=== PATIENT | male | born 1955 | race Caucasian/White ===

== ENCOUNTER → 2018-02-09 | Outpatient (CLI) | payer MEDICARE, MEDICAID ==
[~2018-02-09] MED LIST: ACETAMINOPHEN325 M1 PO; ACIDOPHILUS1 EAC3 PO; AMANTADINE100 M1 PO; ANTIVERT25 MG PO; AUGMENTIN 875875 MG PO; BACTRIM DS TAB1 EACH PO; BENADRYL25 MG PO; BONINE25 MG PO; CEFEPIME-D2 GM/50 ML IV; CELEXA 20 MG TA20 M1 PO; CELEXA 20 MG TA20 MG PO; FERROUS SULFATE PO; FLAGYL500 MG PO; FLORANEX TABLE1 EACH PO; FUROSEMIDE 80 M80 M1 PO; GUAIFENESIN-DM S5 ML PO; HYDROCODON-ACE1 EAC7 PO; KLOR-CON 1010 MEQ PO; LEVAQUIN 500 M500 M2 PO; LEVOTHYROXINE0.05 MG PO; LIDODERM 5%1 PATC1 TOP; MAPAP325 MG PO; MEN-PHOR LOTIO222 M1 TP; MILK OF MA2400 MG/10 PO; MINOCIN100 MG PO; MINOCYCLINE HC100 M2 PO; MIRALAX255 GM PO; MOM PO; MULTIVITAMINS1 EAC7 PO; MYLANTA 12 OZ355 M1 PO; MYLANTA PO; NYSTATIN 100,0015 G1; NYSTATIN15 GM; NYSTATIN15 GM TOP; OMEPRAZOLE 20 M20 MG PO; OYSTER SHELL C1 EA14 PO; Orajel MUCOUS MEM; PRILOSEC 20 MG20 MG PO; QUETIAPINE FUMA25 MG PO; RANITIDINE 150150 M1 PO; SANTYL OINTMENT30 G1 TP; SENEXON-S TABL1 EACH PO; SENEXON8.6 MG PO; SEROQUEL 25 MG25 M1 PO; SEROQUEL 50 MG50 MG PO; SILTUSSIN DM C118 ML PO; SILTUSSIN DM D118 ML PO; SIMVASTATIN20 MG PO; TAMSULOSIN HCL0.4 MG PO; TOPAMAX 25 MG T25 M1 PO; TOPAMAX SPRINKL PO; TRIAMCINOLONE A80 G2 TOP; VANCOCIN 250 M250 M1 IV; VANCOMYCIN1.5 GM/251 IV; VITCB500GO PO; [UNRECOGNIZED DRUG - CODE] PO
== END ==
LOC: M.CT 09:54
DX: K76.0 Fatty (change of) liver, not elsewhere classified (principal); M79.9 Soft tissue disorder, unspecified

== ENCOUNTER 2020-09-15 20:10 | Inpatient (IN) | payer MEDICARE, MEDICAID ==
[~2020-09-15] VITALS: Ht 170.2 cm; Wt 113.4 kg
--- NOTE | ~2020-09-15 | OP ---
[address] [address] OPERATIVE REPORT Name: MIKE FLORES Room: [address] ADM IN M.R.#: [id number] Admission: 09/17/20 Attend Phys: Yadiel Garcia MD Discharge: Date of : 59 Report #: [id number] THIS REPORT FOR: //name// cc: Toño Cooper MD, Dennis R MD ~ For GI report, please see the Provation report in Per[employer] 7 content. By: 1320Medical Records Staff LILA /ED
[2020-09-15 20:18] VITALS: BP 138/78
[2020-09-15] MEDS ORDERED: ZINC SULFATE220 MG PO (20:23)
[2020-09-15] MEDS ORDERED: FAMOTIDINE 20 M20 MG PO (20:24)
[2020-09-15 20:59] LABS: ABSOLUTE BASOPHILS 0.1 thou/uL (0.0-0.2); ABSOLUTE EOSINOPHILS 0.3 thou/uL (0.0-0.7); ABSOLUTE LYMPHOCYTES 1.6 thou/uL (0.8-5.3); ABSOLUTE MONOCYTES 0.6 thou/uL (0.0-1.2); ABSOLUTE NEUTROPHILS 7.5 thou/uL (1.6-8.1); BASOPHILS 0.7 %; EOSINOPHILS 3.1 %; HEMATOCRIT 39.4 % (42.0-52.0); HEMOGLOBIN 13.1 gm/dL (14.0-18.0); LYMPHOCYTES 15.8 %; MCH 29.3 pg (26.0-34.0); MCHC 33.4 g/dL (28.0-37.0); MCV 87.9 fL (80.0-100.0); MONOCYTES 6.1 %; MPV 7.5 fl. (7.2-11.1); NUCLEATED RBCS 0 /100WBC; PLATELET COUNT* 391 thou/uL (150-400); POLYS 74.3 %; RBC 4.48 mil/uL (4.50-6.00); RDW-CV 13.8 % (10.5-14.5); WBC 10.1 thou/uL (4.0-11.0)
[2020-09-15 21:11] LABS: CREATININE 0.7 mg/dL (0.6-1.3); POTASSIUM 3.7 mmol/L (3.5-5.1)
[2020-09-15 21:15] LABS: ALBUMIN 2.9 g/dL (3.4-5.0); MAGNESIUM 1.9 mg/dL (1.8-2.4); TOTAL BILIRUBIN 0.2 mg/dL (<0.1-1.0); TOTAL PROTEIN 7.1 g/dL (6.4-8.2)
[2020-09-15 21:16] LABS: PROTIME 10.4 Seconds (9.20-11.50)
[2020-09-15 23:45] VITALS: BP 140/68
[2020-09-16 04:33] VITALS: BP 129/74
[2020-09-16 11:00] VITALS: BP 131/76
[2020-09-16 16:00] VITALS: BP 161/82
[2020-09-16 18:56] LABS: HEMATOCRIT 38.4 % (42.0-52.0); HEMOGLOBIN 12.8 gm/dL (14.0-18.0); MCH 29.3 pg (26.0-34.0); MCHC 33.3 g/dL (28.0-37.0); MCV 88.1 fL (80.0-100.0); MPV 7.1 fl. (7.2-11.1); RBC 4.35 mil/uL (4.50-6.00); WBC 9.2 thou/uL (4.0-11.0)
[2020-09-16 20:14] VITALS: BP 134/69
[2020-09-16 23:27] VITALS: BP 129/66
[2020-09-17 04:10] LABS: ABSOLUTE BASOPHILS 0.1 thou/uL (0.0-0.2); ABSOLUTE EOSINOPHILS 0.3 thou/uL (0.0-0.7); ABSOLUTE LYMPHOCYTES 1.5 thou/uL (0.8-5.3); ABSOLUTE MONOCYTES 0.6 thou/uL (0.0-1.2); BASOPHILS 1.5 %; EOSINOPHILS 3.6 %; HEMATOCRIT 39.9 % (42.0-52.0); HEMOGLOBIN 13.2 gm/dL (14.0-18.0); LYMPHOCYTES 15.4 %; MCHC 33.1 g/dL (28.0-37.0); MCV 87.5 fL (80.0-100.0); MONOCYTES 6.7 %; MPV 7.8 fl. (7.2-11.1); NUCLEATED RBCS 0 /100WBC; PLATELET COUNT* 368 thou/uL (150-400); POLYS 72.8 %; RBC 4.56 mil/uL (4.50-6.00); WBC 9.6 thou/uL (4.0-11.0)
[2020-09-17 04:16] VITALS: BP 112/51
[2020-09-17 04:35] LABS: CALCIUM 8.4 mg/dL (8.5-10.1); CREATININE 0.6 mg/dL (0.6-1.3); POTASSIUM 3.9 mmol/L (3.5-5.1)
[2020-09-17 09:00] VITALS: BP 105/55
--- NOTE | 2020-09-17 12:38 | CON ---
[address] [address] CONSULTATION Name: MIKE FLORES Room: [address] IN M.R.#: [id number] Admission: 09/17/20 Attend Phys: Yadiel Garcia MD Discharge: Date of : 59 Report #: [id number] THIS REPORT FOR: //name// cc: Toño Cooper MD, Dennis R MD ~ DATE OF SERVICE: 09/16/2020 REQUESTING PHYSICIAN: Yadiel Garcia MD HISTORY OF PRESENT ILLNESS: This is a 65-year-old male with no previous history of endoscopies in the past, who presents with 3 days of rectal bleeding. The patient denies any significant change in bowel habits. He also denies any upper GI symptoms as he denies nausea, vomiting, dyspepsia, GERD, and dysphagia. He reports that the stool is somewhat dark in color and the blood has not been bright red either. The bleeding prompted him to come to hospital. His hemoglobin checked in ER, was stable. PAST MEDICAL HISTORY: Significant for history of hypothyroidism, hyperlipidemia, hypertension, gastroesophageal reflux disease, depression, dementia, encephalopathy, chronic back pain, tobacco abuse, alcohol abuse, right leg amputation, history of PEG tube placement. ALLERGIES: SIGNIFICANT TO LORAZEPAM. MEDICATIONS: Please refer to MAR. SOCIAL HISTORY: The patient admits to tobacco and alcohol use. FAMILY HISTORY: Negative for GI malignancy. PHYSICAL EXAMINATION: VITAL SIGNS: Reveals normal vitals. LUNGS: Clear. CARDIOVASCULAR: Regular. ABDOMEN: Large, soft, nontender, nondistended. Bowel sounds are positive. NEUROLOGIC: The patient is sleepy, but alert and oriented x 3. LABORATORY DATA: Labs reveal sodium of 137, potassium 3.7, BUN is 17, creatinine 0.7, glucose 140. AST 20, ALT is 28, alkaline phosphatase 91, total bilirubin is 0.2. WBC is 10.1 with hemoglobin of 13.1 and platelets of 391. IMAGING: Chest x-ray was obtained, which showed opacities at the left costophrenic angle, which may be due to [place]elect[place] [address] CONSULTATION Name: MIKE FLORES Room: [address] IN [facility].#: [id number] Admission: 09/17/20 Attend Phys: Yadiel Garcia MD Discharge: Date of : 59 Report #: [id number] ASSESSMENT AND PLAN: The patient with no previous history of endoscopies who has had history of gastroesophageal reflux disease and takes promethazine. He reports dark stool with blood in the stool for the past 3 days. We will schedule him for upper and lower endoscopy tomorrow and make further recommendation based on finding. Meanwhile, we will continue monitoring his H and H. <ELECTRONICALLY SIGNED> By: Darius Cook MD 09/17/20 1238 1027 [id number] Cook MD /tosin
[2020-09-17 12:57] VITALS: BP 114/70
[2020-09-17 15:45] VITALS: BP 128/51
[2020-09-17 20:49] VITALS: BP 117/65
[2020-09-18 00:08] VITALS: BP 120/75
[2020-09-18 03:20] VITALS: BP 124/69
[2020-09-18 08:00] VITALS: BP 136/71
[2020-09-18 08:40] LABS: ABSOLUTE BASOPHILS 0.1 thou/uL (0.0-0.2); ABSOLUTE EOSINOPHILS 0.3 thou/uL (0.0-0.7); ABSOLUTE LYMPHOCYTES 1.5 thou/uL (0.8-5.3); ABSOLUTE MONOCYTES 0.7 thou/uL (0.0-1.2); ABSOLUTE NEUTROPHILS 6.6 thou/uL (1.6-8.1); BASOPHILS 1.3 %; EOSINOPHILS 3.4 %; HEMATOCRIT 37.5 % (42.0-52.0); HEMOGLOBIN 12.8 gm/dL (14.0-18.0); LYMPHOCYTES 16.2 %; MCH 29.4 pg (26.0-34.0); MCV 86.3 fL (80.0-100.0); MONOCYTES 7.3 %; NUCLEATED RBCS 0 /100WBC; PLATELET COUNT* 400 thou/uL (150-400); POLYS 71.8 %; RBC 4.34 mil/uL (4.50-6.00); RDW-CV 13.9 % (10.5-14.5); WBC 9.2 thou/uL (4.0-11.0)
--- NOTE | 2020-09-18 08:45 | EKG ---
[place] [address] ELECTROCARDIOGRAM REPORT Name: MARKMIKE Room: [address] ADM IN M.R.#: [id number] Admission: 09/17/20 Attend Phys: Yadiel Garcia, Discharge: Date of : 59 Date of Service: 09/15/202018 Report #: [id number] THIS REPORT FOR: //name// [facility] ED Test Date: 2020-09-15 Test Time: 20:19:56 Pat Name: MIKE FLORES Department: Room: [facility] Gender: M Clinical Engineer: [facility] : 1955 Requested By: Nidia Santillan Order Number: [id number] MD: Nadeem Le Measurements Intervals [place] Rate: 94 P: 47 [place]: 160 QRS: -34 QRSD: 96 T: 9 QT: 371 QTc: 464 Interpretive Statements Sinus rhythm LAD, consider LAFB or inferior infarct Low voltage, precordial leads Consider anterior infarct Compared to ECG 07/24/2016 11:43:03 Low QRS voltage now present Intraventricular conduction delay no longer present Myocardial infarct finding still present Electronically Signed On 09-18-2020 8:44:55 PRODUCT AMBASSADOR by Nadeem Le [email or web address] <ELECTRONICALLY SIGNED> By: Jennifer Le MD, SILVIO 09/18/20 0844 18 18 Jennifer Le MD, [facility] /EPI
--- NOTE | 2020-09-18 08:45 | EKG ---
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: [facility] : 1955 Requested By: Nidia Santillan Order Number: [id number] Reading MD: Nadeem Le Measurements Intervals [place] Rate: 93 P: 36 MS: 203 QRS: -5 QRSD: 104 T: 15 QT: 363 QTc: 452 Interpretive Statements Sinus rhythm Low voltage, precordial leads Compared to ECG 09/15/2020 20:19:56 Myocardial infarct finding no longer present Electronically Signed On 09-18-2020 8:45:33 MUD CLEANER OPERATOR by Nadeem Le [email or web address] <ELECTRONICALLY SIGNED> By: Jennifer Le MD, FAC 09/18/20 0845 20 20 Jennifer Le MD, [facility] /EPI
[2020-09-18 08:57] LABS: ALBUMIN 3.1 g/dL (3.4-5.0); CALCIUM 7.8 mg/dL (8.5-10.1); CREATININE 0.8 mg/dL (0.6-1.3); POTASSIUM 3.5 mmol/L (3.5-5.1); TOTAL BILIRUBIN 0.4 mg/dL (<0.1-1.0); TOTAL PROTEIN 7.1 g/dL (6.4-8.2)
[2020-09-18] MEDS ORDERED: PROTONIX40 M2 PO (09:43)
[2020-09-18] MEDS ORDERED: AUGMENTIN 875-1 EACH PO (09:43)
[2020-09-18] MEDS ORDERED: ANUSOL-HC25 MG RECTAL (09:47)
[2020-09-18 11:02] VITALS: BP 115/66
--- NOTE | 2020-09-21 15:07 | PATH ---
[address] [address] PATHOLOGY RPT PROCEDURE Name: MIKE FLORES Room: [address] IN M.R.#: [id number] Admission: 09/17/20 Date of : 59 Discharge: 09/18/20 Report #: [id number] Path Case #: [id number] [facility] Accession Number: [id number] . 01 Material submitted: . PART A: cecum - CECAL POLYP PART B: rectosigmoid junction - RECTAL SIGMOID POLYP . 01 Clinician provided ICD-10: K92.2 J18.9 . 01 Clinical history: . GI BLEED . 02 Diagnosis: A. Cecal polyp: - Tubular adenoma, negative for high-grade dysplasia. . B. Rectal sigmoid polyp: - Hyperplastic polyp. . (ISABEL:vazquez; 09/21/2020) MBR 09/21/2020 1211 Local . 02 Electronically signed: . Jose Mccray MD, Pathologist NPI- [id number] . 01 Gross description: . A. The specimen is received in formalin, labeled "Mike Flores, cecal polyp" and consists of 2 fragments of pink-villar tissue measuring 0.1 x 0.1 cm and 0.5 x 0.2 cm which are entirely submitted in A1. . B. The specimen is received in formalin, labeled "Mike Flores, rectal sigmoid polyp" and consists of 2 fragments of pink-villar tissue measuring 0.3 x 0.2 cm and 0.4 x 0.3 cm which are entirely submitted in B1. (SDY; 09/19/2020) SYU/SYU 09/19/2020 1152 Local . 02 Pathologist provided ICD-10: D12.0, K62.1 . 02 CPT . 594930, 573334 Specimen Comment: A courtesy copy of this report has been sent to [phone] Specimen Comment: [id number], [place] [address] PATHOLOGY RPT PROCEDURE Name: MIKE FLORES Room: [address] IN M.R.#: [id number] Admission: 09/17/20 Date of : 59 Discharge: 09/18/20 Report #: [id number] Path Case #: [id number] Specimen Comment: Report sent to ,DR TAPIA / DR SHERMAN Performed at: 01 [facility] [address], [place], [place] [id number] MD Monroe Farris MD Phone: [phone] Performed at: 02 [facility] [address] [place], [place], [place] [id number] MD Jose Mccray MD Phone: [phone]
== END 2020-09-18 15:04 | DRG 377 ==
LOC: M.ERS 20:10 → M.TBA-ER 22:15 → M.ERS 22:15 → M.TBA-ER 22:15 → M.2W 09-16 00:20
PROVIDERS: Emergency Medicine; ADMIT Internal Medicine; ATTEND Internal Medicine
PROC: 0D758ZZ Dilation of Esophagus, Via Natural or Artificial Opening Endoscopic (ICD-10-PCS; principal; 2020-09-17)
PROC: 0DJD8ZZ Inspection of Lower Intestinal Tract, Via Natural or Artificial Opening Endoscopic (ICD-10-PCS; principal; 2020-09-17)
DX: K57.31 Diverticulosis of large intestine without perforation or abscess with bleeding (principal); J15.6 Pneumonia due to other Gram-negative bacteria; K64.8 Other hemorrhoids; K44.9 Diaphragmatic hernia without obstruction or gangrene; K22.2 Esophageal obstruction; K21.9 Gastro-esophageal reflux disease without esophagitis; E03.9 Hypothyroidism, unspecified; G89.29 Other chronic pain; F32.9 Major depressive disorder, single episode, unspecified; F10.11 Alcohol abuse, in remission; D12.0 Benign neoplasm of cecum; F03.90 Unspecified dementia, unspecified severity, without behavioral disturbance, psychotic disturbance, mood disturbance, and anxiety; Z79.899 Other long term (current) drug therapy; Z88.8 Allergy status to other drugs, medicaments and biological substances; Z20.828 Contact with and (suspected) exposure to other viral communicable diseases